=== PATIENT | male | born 2000 | race Two or more races ===

== ENCOUNTER 2018-07-12 21:54 | Emergency (ER) | payer OTHER ==
--- NOTE | 2018-07-12 23:47 | ED ---
Upper Extremity Pain - HPI Summary HPI Summary: 18-year-old male presents with right shoulder injury today. He states he felt a pop. He states he may have dislocated shoulders he felt a pop. He feels like it went back in. He states he still been having limited range of motion. He is able to internally rotate the shoulder. No numbness or tingling. He has history of rotator cuff injury. He denies any head injury or other injury. - History of Current Complaint Chief Complaint: EDExtremityUpper Stated Complaint: RT SHOULDER INJURY Time Seen by Provider: 07/12/18 23:29 - Allergies/Home Medications Allergies/Adverse Reactions: Allergies Allergy/AdvReac Type Severity Reaction Status Date / Time No Known Allergies Allergy Verified 07/12/18 22:03 PMH/Surg Hx/FS Hx/Imm Hx Endocrine/Hematology History: Denies: Hx Anticoagulant Therapy Respiratory History: Denies: Hx Asthma Infectious Disease History: No Infectious Disease History: Denies: Traveled Outside the [place] in Last 30 Days - Family History Known Family History: Positive: Non-Contributory - Social History Substance Use Type: Reports: None Smoking Status (MU): Never Smoked Tobacco Review of Systems Negative: Fever Negative: Chest Pain Negative: Shortness Of Breath Positive: Myalgia - right shoulder pain All Other Systems Reviewed And Are Negative: Yes Physical Exam Triage Information Reviewed: Yes Vital Signs On Initial Exam: Initial Vitals Temp Pulse Resp BP Pulse Ox 99.8 F 59 16 142/84 97 07/12/18 22:00 07/12/18 22:00 07/12/18 22:00 07/12/18 22:00 07/12/18 22:00 Vital Signs Reviewed: Yes Appearance: Positive: Well-Appearing Skin: Positive: Warm, Dry Head/Face: Positive: Normal Head/Face Inspection Eyes: Positive: Normal, Conjunctiva Clear ENT: Positive: Pharynx normal Respiratory/Lung Sounds: Positive: Clear to Auscultation, Breath Sounds Present Cardiovascular: Positive: Normal, RRR Musculoskeletal: Positive: Limited @ - right shoulder, Other - able to external rotate and bring arm across to opposite shoulder with some pain, no step off, good pulses, good fountain jerk strength Neurological: Positive: Normal Psychiatric: Positive: Normal Diagnostics - Vital Signs Vital Signs Temp Pulse Resp BP Pulse Ox 07/12/18 22:00 99.8 F 59 16 142/84 97 - Laboratory Lab Statement: Any lab studies that have been ordered have been reviewed, and results considered in the medical decision making process. - Radiology shoulder Radiology Interpretation Completed By: ED Physician Summary of Radiographic Findings: subluxed Course/Dx - Course Course Of Treatment: 18-year-old male presents with right shoulder injury today. He states he felt a pop. He states he may have dislocated shoulders he felt a pop. He feels like it went back in. He states he still been having limited range of motion. He is able to internally rotate the shoulder. No numbness or tingling. He has history of rotator cuff injury. He denies any head injury or other injury. on exam has tenderness over right shoulder. neurovascular intact. no step off. able to external rotate the shoulder and able to bring it across to the other shoulder. shoulder xray read as subluxation by me and Dr Lorenz. gave sling. told follow up with ortho. patient understand and agrees with plan. - Diagnoses Differential Diagnosis/HQI/PQRI: Positive: Fracture (Closed), Other - dislocation and subluxation Provider Diagnoses: Subluxation of right shoulder joint Discharge - Sign-Out/Discharge Documenting (check all that apply): Patient Departure Patient Received Moderate/Deep Sedation with Procedure: No - Discharge Plan Condition: Good Disposition: HOME Patient Education Materials: Shoulder Dislocation (ED) Forms: *School Release Referrals: [facility] [place] Physical therapy,PT [Medical Doctor] - Krys Pisano MD [Medical Doctor] - Additional Instructions: shoulder is subluxed at this point Keep in sling Take Tylenol and ibuprofen every 6 hours as needed for pain Ice Follow up with ortho Return to ED if develop any new or worsening symptoms - Billing Disposition and Condition Condition: GOOD Disposition: Home
[2018-07-13 00:03] VITALS: BP 126/86
--- NOTE | 2018-07-13 14:38 | PN ---
Progress Note - Progress Note Date of Service: 07/12/18 Note: Final radiology read today: IMPRESSION: 1. MINIMAL CORTICAL IRREGULARITY OF THE POSTERIOR HUMERAL HEAD WHICH MAY INDICATE A HILL-SACHS LESION GIVEN THE HISTORY OF DISLOCATION. 2. THERE IS WIDENING OF THE ACROMIOHUMERAL INTERVAL SUGGESTIVE OF HEMARTHROSIS GIVEN THE CLINICAL HISTORY. Pt. placed in sling and was given instruction to f.u with orthopedics. No change in treatment needed.
== END 2018-07-13 00:01 | disposition home or self-care (01) ==
LOC: ED 21:54
DX: S43.001A Unspecified subluxation of right shoulder joint, initial encounter (principal); X58.XXXA Exposure to other specified factors, initial encounter; Y92.9 Unspecified place or not applicable
CPT/HCPCS: 99282